=== PATIENT | female | born 1975 | race Caucasian/White ===

== ENCOUNTER 2023-12-01 17:15 | Inpatient (IN) | payer BC, OTHER ==
[~2023-12-01] VITALS: Ht 157.5 cm; Wt 89.8 kg
[~2023-12-01 17:15] MED LIST: SYNTHROID150 MCG PO; TOPIRAMATE100 MG PO
[2023-12-01 18:24] VITALS: TEMP 98.6
[2023-12-01 18:59] LABS: BASOPHILS % 0.2 % (0.0-1.0); EOSINOPHILS # (AUTO) 0.3 (0.0-0.4); EOSINOPHILS % 2.3 % (0.0-6.0); HEMATOCRIT 43.1 % (34.2-44.1); LYMPHOCYTES # (AUTO) 2.3 (1.0-3.2); LYMPHOCYTES % 21.1 % (18.0-39.1); MEAN CORPUSCULAR HEMOGLOBIN 29.2 pg (28-32); MEAN CORPUSCULAR HGB CONC 32.5 g/dL (31-35); MEAN CORPUSCULAR VOLUME 89.8 fL (81-99); MONOCYTES # (AUTO) 0.9 (0.2-0.8); MONOCYTES % 8.6 % (4.4-11.3); NEUTROPHILS # (AUTO) 7.4 (2.1-6.9); NEUTROPHILS % 67.4 % (38.7-80.0); PLATELET COUNT 212 x10e3/uL (140-360); RED CELL DISTRIBUTION WIDTH 12.9 % (11.7-14.4); WHITE BLOOD COUNT 10.97 x10e3/uL (4.8-10.8)
[2023-12-01 19:16] LABS: ALBUMIN/GLOBULIN RATIO 1.1 (0.8-2.0); ANION GAP 15.9 mmol/L (8-16); BILIRUBIN,TOTAL 0.6 mg/dL (0.2-1.2); CALCIUM 9.4 mg/dL (8.4-10.2); CREATININE, SERUM 1.23 mg/dL (0.57-1.11); POTASSIUM 3.9 mmol/L (3.5-5.1); TOTAL PROTEIN 7.6 g/dL (6.5-8.1)
[2023-12-01] MEDS ORDERED: Morphine 4mg INJECTION 4 MG/ML INJ IV PRN (21:30)
[2023-12-01] MEDS: KETOROLAC TROMETHAMINE 30 MG/ML VIAL IV STA (21:41)
[2023-12-01] MEDS: SODIUM CHLORIDE 0.9% 1000ML 1,000 ML IV STA (21:41)
[2023-12-01] MEDS: ONDANSETRON HCL INJ 2MG/ML 2ML 2 MG/ML VIAL IV STA (21:41)
[2023-12-01 21:51] VITALS: PULSE 60; RESP 17
[2023-12-01 22:16] LABS: BILIRUBIN,URINE NEGATIVE (NEGATIVE); CLARITY,URINE SL CLOUDY (CLEAR); COLOR,URINE YELLOW (YELLOW); GLUCOSE, URINE NEGATIVE (NEGATIVE); KETONES,URINE NEGATIVE (NEGATIVE); LEUKOCYTE ESTERASE ,URINE SMALL (NEGATIVE); NITRITE,URINE NEGATIVE (NEGATIVE); PH,URINE 5.5 (5 - 7); PROTEIN,URINE DIPSTICK 2+ (NEGATIVE); URINE UROBILINOGEN 0.2 mg/dL (0.2 - 1)
[2023-12-01 22:30] LABS: BACTERIA,URINE MANY /HPF; EPITHELIAL CELLS,URINE MODERATE /LPF; RBC,URINE >50 /HPF (0-5)
[2023-12-01] MEDS ORDERED: ONDANSETRON HCL INJ 2MG/ML 2ML 2 MG/ML VIAL IV PRN (22:30)
[2023-12-01] MEDS: SODIUM CHLORIDE 0.9% 1000ML 1,000 ML IV SCH (23:13)
[2023-12-01 23:20] VITALS: BP 139/74; PULSE 64; RESP 19; TEMP 97.7; O2SAT 99
[2023-12-01 23:30] VITALS: BP 139/74; PULSE 64; RESP 19; TEMP 97.7; O2SAT 99
[2023-12-02] VITALS (8 sets, daily range): BP systolic 97–139; BP diastolic 54–94; PULSE 57–71; RESP 17–19; TEMP 97.7–98.3; O2SAT 98–100
[2023-12-02] MEDS ORDERED: SYNTHROID125 MCG PO (00:23)
[2023-12-02] MEDS ORDERED: VIMPAT100 MG PO (00:23)
[2023-12-02] MEDS ORDERED: TOPIRAMATE50 MG PO (00:23)
[2023-12-02] MEDS ORDERED: OMEPRAZOLE40 MG PO (00:23)
[2023-12-02 05:27] LABS: BASOPHILS % 0.1 % (0.0-1.0); EOSINOPHILS # (AUTO) 0.2 (0.0-0.4); EOSINOPHILS % 3.3 % (0.0-6.0); HEMATOCRIT 36.6 % (34.2-44.1); HEMOGLOBIN 11.8 g/dL (12.0-16.0); LYMPHOCYTES # (AUTO) 2.3 (1.0-3.2); LYMPHOCYTES % 31.4 % (18.0-39.1); MEAN CORPUSCULAR HEMOGLOBIN 29.7 pg (28-32); MEAN CORPUSCULAR HGB CONC 32.2 g/dL (31-35); MEAN CORPUSCULAR VOLUME 92.2 fL (81-99); MONOCYTES # (AUTO) 0.9 (0.2-0.8); MONOCYTES % 12.4 % (4.4-11.3); NEUTROPHILS # (AUTO) 3.8 (2.1-6.9); NEUTROPHILS % 52.5 % (38.7-80.0); PLATELET COUNT 158 x10e3/uL (140-360); RED BLOOD COUNT 3.97 x10e6/uL (3.6-5.1); WHITE BLOOD COUNT 7.23 x10e3/uL (4.8-10.8)
[2023-12-02 06:01] LABS: ALBUMIN 2.9 g/dL (3.5-5.0); BILIRUBIN,TOTAL 0.4 mg/dL (0.2-1.2); CALCIUM 7.9 mg/dL (8.4-10.2); CREATININE, SERUM 1.06 mg/dL (0.57-1.11); TOTAL PROTEIN 5.7 g/dL (6.5-8.1)
[2023-12-02] MEDS: KETOROLAC TROMETHAMINE 30 MG/ML VIAL IV PRN (10:00)
[2023-12-03] VITALS: BP 116/63; PULSE 52; RESP 16; TEMP 97.7; O2SAT 100
[2023-12-03 04:00] VITALS: BP 91/63; PULSE 68; RESP 19; TEMP 98.1; O2SAT 96
[2023-12-03] MEDS ORDERED: IOPAMIDOL 610MG/1ML 300 MG/ML VIAL IV ONE (07:03)
[2023-12-03] MEDS: LEVOFLOXACIN 500MG/D5W 100ML 100 ML IV ONE (07:22)
[2023-12-03 08:05] VITALS: BP 128/76; PULSE 62; RESP 18; TEMP 97.8; O2SAT 100
[2023-12-03 08:45] VITALS: BP 128/76; PULSE 62; RESP 18; TEMP 97.8; O2SAT 100
[2023-12-03] MEDS ORDERED: FENTANYL CITRATE/PF 100MCG/2 ML INJ ONE (09:52)
[2023-12-03 11:25] VITALS: BP 130/75; PULSE 60; RESP 18; TEMP 98.4; O2SAT 99
[2023-12-03] MEDS ORDERED: ONDANSETRON HCL INJ 2MG/ML 2ML 2 MG/ML VIAL ONE (13:37)
[2023-12-03] MEDS ORDERED: DEXAMETHASONE SOD PHOS INJ 4 MG/ML SDV ONE (13:37)
[2023-12-03] MEDS ORDERED: SEVOFLURANE INHAL SOLN 250 ML PEN BTL ONE (13:37)
[2023-12-03] MEDS ORDERED: PROPOFOL IV EMULSION 10 MG/ML 20 ML VIAL ONE (13:37)
[2023-12-03] MEDS ORDERED: LIDOCAINE HCL 2% LOCAL INJ 5 ML SDV VIAL INJ ONE (13:37)
[2023-12-03] MEDS ORDERED: TYLENOL EXTRA500 MG PO (14:36)
[2023-12-03] MEDS ORDERED: CIPRO500 MG PO (14:37)
[2023-12-03 15:35] VITALS: BP 123/68; PULSE 67; RESP 18; TEMP 98.6; O2SAT 96
== END 2023-12-03 16:07 | disposition home or self-care (01) | DRG 661 ==
LOC: ER 17:51 → ERHOLD 21:29 → MED/SURG2 23:19
PROVIDERS: ADMIT Internal Medicine; ATTEND Internal Medicine
PROC: BT141ZZ Fluoroscopy of Kidneys, Ureters and Bladder using Low Osmolar Contrast (ICD-10-PCS; 2023-12-03)
PROC: 0T768DZ Dilation of Right Ureter with Intraluminal Device, Via Natural or Artificial Opening Endoscopic (ICD-10-PCS; principal; 2023-12-03 07:01)
DX: N13.2 Hydronephrosis with renal and ureteral calculous obstruction (principal); E83.51 Hypocalcemia; N23 Unspecified renal colic; E66.9 Obesity, unspecified; R31.9 Hematuria, unspecified; R82.81 Pyuria; Z11.52 Encounter for screening for COVID-19; Z68.36 Body mass index [BMI] 36.0-36.9, adult; Z88.8 Allergy status to other drugs, medicaments and biological substances
CPT/HCPCS: 36415; 74176; 74420; 80053; 81001; 83690; 84702; 85025; 99284; C1758; C1769; C2617; J1100; J1885; J1956; J2001; J2270; J2405; J7030; U0002

== ENCOUNTER → 2024-01-07 | Day surgery (SDC) | payer BC ==
[~2024-01-07] MED LIST changes: +ACETAMINOPHEN 1000 MG/100 ML IV ONE; +CIPRO500 MG PO; +DEXAMETHASONE SOD PHOS INJ 4 MG/ML SDV ONE; +FENTANYL CITRATE/PF 100MCG/2 ML INJ ONE; +IOPAMIDOL 610MG/1ML 300 MG/ML VIAL IV ONE; +LIDOCAINE HCL 2% LOCAL INJ 5 ML SDV VIAL INJ ONE; +OMEPRAZOLE40 MG PO; +ONDANSETRON HCL INJ 2MG/ML 2ML 2 MG/ML VIAL ONE; +PROPOFOL IV EMULSION 10 MG/ML 20 ML VIAL ONE; +SEVOFLURANE INHAL SOLN 250 ML PEN BTL ONE; +SYNTHROID125 MCG PO; +TOPIRAMATE50 MG PO; +TYLENOL EXTRA500 MG PO; +VIMPAT100 MG PO
[2024-01-07] MEDS: CEFTRIAXONE 1 GM VIAL ONE (06:17)
[2024-01-07] MEDS: LACTATED RINGER'S 1,000 ML ONE (06:17)
[2024-01-07 07:39] VITALS: TEMP 97.9
[2024-01-07] MEDS: FENTANYL CITRATE/PF 100MCG/2 ML INJ ONE (07:53)
[2024-01-07 08:45] VITALS: BP 158/80; PULSE 52; RESP 18; O2SAT 96
== END | disposition home or self-care (01) ==
LOC: OR 05:32
PROVIDERS: ATTEND Urology
DX: N20.1 Calculus of ureter (principal); Z46.6 Encounter for fitting and adjustment of urinary device; I10 Essential (primary) hypertension; E03.9 Hypothyroidism, unspecified; E66.01 Morbid (severe) obesity due to excess calories; K21.9 Gastro-esophageal reflux disease without esophagitis; G40.909 Epilepsy, unspecified, not intractable, without status epilepticus; Z88.8 Allergy status to other drugs, medicaments and biological substances; Z79.899 Other long term (current) drug therapy; Z68.36 Body mass index [BMI] 36.0-36.9, adult
CPT/HCPCS: 52353; 74420; 81025; 88300; C1769; J0131; J0696; J1100; J2001; J2405; J2704; J3010; J7121; Q9967